=== PATIENT | female | born 1965 | race Two or more races ===

== ENCOUNTER → 2019-06-30 14:05 | Outpatient (CLI) | payer BC, SELFPAY ==
--- NOTE | 2019-06-30 14:10 | RAD_ITS ---
HISTORY: RIGHT KNEE PAIN ADDITIONAL HISTORY: None provided. TECHNIQUE: Right knee 4 views. Number of images including paperwork: 4 COMPARISON: None FINDINGS: BONES: No acute fracture. JOINTS: No subluxation. Small right knee joint effusion. SOFT TISSUES: No distinct foreign body. RAD/Knee 4 or More Views IMPRESSION: No acute osseous abnormality. Small right knee joint effusion. at 2345 Reported and signed by: Anne Marie Mancini MD Electronically Signed: Anne Marie Mancini MD at 23:45 EST Tel , Service support ,
== END ==
LOC: MTRAD 15:13 → HPRAD 15:13
PROVIDERS: Family Provider Nurse Practitioner Adult Health; PCP Nurse Practitioner Adult Health; Referring Provider Physician Assistant; Visit Provider Physician Assistant
DX: M25.561 Pain in right knee (principal)
CPT/HCPCS: 73564